=== PATIENT | male | born 1990 | race Caucasian/White ===

== ENCOUNTER 2016-06-22 16:15 | Observation (INO) | payer BC ==
[2016-06-22] MEDS ORDERED: KETOROLAC TROMETHAMINE INJ 30 MG/ML VIAL IV ONE (16:42)
[2016-06-22] MEDS ORDERED: HYDROcodone 10MG/APAP 325MG 1 EA TAB PO ONE (16:44)
[2016-06-22] MEDS ORDERED: CLINDAMYCIN IV 900MG 900 MG in PREMIX BAG 1 BAG IVPB ONE (16:44)
--- NOTE | 2016-06-22 16:48 | ED.PDOC ---
History of Present Illness - General Chief Complaint: Skin/Abrasion/Tear Stated Complaint: boil draining on neck x several days Time Seen by Provider: 06/22/16 16:41 Source: patient Exam Limitations: no limitations - History of Present Illness Initial Comments: 26 YO MALE REPORTS PROGRESSIVELY WORSENING AREA OF ERYTHEMA, PAIN AND SWELLING LOCATED IN THE RIGHT SUBMANDIBULAR REGION. PT REPORTS THAT MASS STARTED A PIMPLE AND PROGRESSIVELY BECAME LARGER AND MORE PAINFUL. PT REPORTS THAT THE MASS BEGAN TO DRAIN PURULENT MATERIAL OVER THE PAST 2 DAYS. PT REPORTS MILD DIFFICULTY SWALLOWING OF TODAY. Timing/Duration: getting worse Severity: moderate Location: face Improving Factors: nothing Worsening Factors: nothing Allergies/Adverse Reactions: Allergies NO KNOWN ALLERGY Allergy (Verified 06/22/16 16:34) Home Medications: Ambulatory Orders Lansoprazole [Prevacid] 06/22/16 Review of Systems - Review of Systems Constitutional: Denies: chills, fever EENTM: Denies: throat pain, mouth pain Respiratory: Denies: short of breath, stridor Cardiology: Denies: chest pain, palpitations Gastrointestinal/Abdominal: Denies: nausea, vomiting Genitourinary: Denies: frequency, pain Musculoskeletal: Denies: joint pain, muscle pain Skin: States: see HPI, change in color, lesions, lumps Neurological: Denies: numbness, paresthesia Endocrine: Denies: increased hunger, increased thirst Hematologic/Lymphatic: Denies: anemia, easy bleeding Past Medical History (General) - Patient Medical History Hx Seizures: No Hx Stroke: No Hx Dementia: No Hx Asthma: No Hx of COPD: No Hx Cardiac Disorders: No Hx Congestive Heart Failure: No Hx Pacemaker: No Hx Hypertension: No Hx Thyroid Disease: No Hx Diabetes: No Hx Gastroesophageal Reflux: Yes Hx Renal Disease: No Hx Cancer: No Hx of HIV: No Hx Hepatitis C: No Hx MRSA: No Surgical History: tonsillectomy - Vaccination History Hx Tetanus, Diphtheria Vaccination: Yes Hx Influenza Vaccination: No Hx Pneumococcal Vaccination: No Immunizations Up to Date: No - Social History Hx Tobacco Use: No Hx Chewing Tobacco Use: No Hx Alcohol Use: Yes Hx Substance Use: No Hx Substance Use Treatment: No Hx Depression: No Feels Threatened In Home Enviroment: No Feels Threatened In a Relationship: No Hx Physical Abuse: No Hx Emotional Abuse: No Hx Suspected Abuse: No Family Medical History - Family History Mother Family History: Unknown Living Status: Still Living Physical Exam - Physical Exam General Appearance: Alert, Obvious distress, Well Developed, Well Groomed, Well Hydrated Eyes, Ears, Nose, Throat Exam: normal ENT inspection, pharynx normal Neck: other - 5CM DIAMETER AREA OF SWELLING, ERYTHEMA, AND INDURATION WITH ULCERATED CENTER, UNABLE TO EXPRESS ANY PURULENT MATERIAL, NO FLUCTUANCE Cardiovascular/Chest: regular rate, rhythm, no murmur Respiratory: normal breath sounds, no respiratory distress Skin Exam: warm/dry, normal color Skin Problem Location: neck Skin Character: abscess, tenderness Progress - Progress Progress: 06/22/16 18:06 PT REPORTS SOME IMPROVEMENT OF SYMPTOMS ON RE-EXAM. LABS AND CT FINDINGS DISCUSSED. PT AGREES WITH PLAN TO ADMIT FOR IV ABX. - Results/Orders Results/Orders: 06/22/16 16:42 IV Care:Saline Lock per Protoc QSHIFT Sodium Chloride 0.9% (Flush) [Saline Flush Syringe] 10 ml IV PRN PRN 06/22/16 16:43 Hold Metformin x 48Hrs [id number] 06/22/16 17:45 WOUND CULTURE Stat Laboratory Results - last 24 hr 06/22/16 06/22/16 16:55 16:55 WBC 10.1 RBC 4.81 Hgb 14.7 Hct 42.0 MCV 87.4 MCH 30.5 MCHC 34.9 RDW 13.1 Plt Count 285 MPV 8.6 Absolute Neuts (auto) 5.60 Absolute Lymphs (auto) 3.30 Absolute Monos (auto) 0.80 Absolute Eos (auto) 0.30 Absolute Basos (auto) 0.10 Neutrophils % 55.4 Lymphocytes % 32.2 Monocytes % 8.4 Eosinophils % 3.0 Basophils % 1.0 Sodium 137 Potassium 3.7 Chloride 101 Carbon Dioxide 28 Anion Gap 11.7 L BUN 11 Creatinine 0.77 BUN/Creatinine Ratio 14.3 Random Glucose 81 Serum Osmolality 272.2 L Calcium 9.3 - EKG/XRAY/CT CT: CT SOFT TISSUE NECK SHOWS NO DRAINABLE FLUID COLLECTION, (+)CELLULITIS Departure - Departure Clinical Impression: Abscess Cellulitis Qualifiers: Site of cellulitis: neck Qualified Code(s): L03.221 - Cellulitis of neck Time of Disposition: 18:08 Disposition: Admit Patient Condition: Fair Departure Forms: ED Discharge - Pt. Copy, Patient Portal Self Enrollment Home Medications: Ambulatory Orders Lansoprazole [Prevacid] 06/22/16 Decision To Admit - Decistion To Admit Decision to Admit Reason: Admit from ER Decision to Admit Date: 06/22/16 - CASE DISCUSSED WITH DR. PAL WHO AGREES TO ADMIT PT. Decision to Admit Time: 18:08
[2016-06-22] MEDS ORDERED: CLINDAMYCIN IV 900MG 50 ML IVPB ONE (16:50)
[2016-06-22] MEDS: SODIUM CHLORIDE 0.9% (FLUSH) 10 ML SYG IV PRN (16:51)
--- NOTE | 2016-06-22 17:37 | CT ---
EXAM DESCRIPTION: CT CERVICAL SPINE CLINICAL HISTORY: right submandibular swelling COMPARISON: None Available. TECHNIQUE: Contiguous axial images of the neck were obtained after administration of intravenous contrast followed by reconstruction images. This exam was performed according to our departmental dose-optimization program, which includes automated exposure control, adjustment of the mA and/or kV according to patient size and/or use of iterative reconstruction technique. FINDINGS: There is focal skin thickening at the right lateral inferior neck which corresponds with the area of palpable abnormality marked with a BB marker. There is mild stranding of the adjacent fat which could be secondary to edema versus cellulitis. There is no discrete focal fluid collection to suggest a drainable abscess. Prevertebral soft tissues are within normal limits. Airway is patent. There is no lymphadenopathy. The thyroid gland and parotid gland are symmetric bilaterally. Lobular opacities within the maxillary sinuses compatible with chronic sinusitis changes/mucoid retention cyst. The submandibular glands are within normal limits. IMPRESSION: Focal skin thickening at the right lateral inferior neck with mild stranding of the adjacent fat could be secondary to focal cellulitis/infectious process. There is no discrete focal fluid collection to suggest a drainable abscess. Electronically signed by: Darrell Hussein MD 06/22/2016 5:37 PM CDT
--- NOTE | 2016-06-22 19:17 | HP ---
HISTORY OF PRESENT ILLNESS: This 26 year-old white male is placed in the hospital from the Emergency Room because of a severe infection on his right anterior neck. No previous history of similar symptoms in the past. He was recently this past weekend and [facility] [place] [facility] In the process about 5 days ago a small pimple appeared on his anterior right mid neck. About 2 days later he used a clean squeezer to help open up the enlarging sore spot with associated induration to remove the white and yellowish cap of pus underneath the skin at its peak. Subsequent to that, the lesion has worsened with increasing induration as well as drainage and erythema , pain and discomfort. He was seen in the Emergency Room today for the first time and noted to have an elevated white count of 10,800. CT scan of the neck was provided to make sure his airway was well maintained because of shortness of breath and some difficulty swallowing at times. No evidence of involvement of the airway or his esophagus was evident, but there was skin thickening with no definite abscess cavity otherwise evident. The draining did continue though for the last 2 days. The Emergency Room physician wished us to observe the patient with continued antibiotic parenterally administered overnight and reevaluation in the morning. PAST SURGICAL HISTORY: None. CURRENT MEDICATIONS: 1. Prilosec. 2. Aleve. ALLERGIES: NONE. HE DOES HAVE SOME SENSITIVITY TO LACTOSE PRODUCTS. FAMILY HISTORY: Hypertension and coronary artery disease. 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 REVIEW OF SYSTEMS: Review of systems have generally been within normal limits except as it relates to this enlarging boil on his right anterior neck region. PHYSICAL EXAMINATION: VITAL SIGNS: Afebrile, pulse 74, blood pressure 114/76, room air saturation 99 % on room air. Weight 113.4 kilos. GENERAL: The patient is awake, alert and oriented, in no acute distress but having discomfort. There is drainage from the area of his right neck from multiple carbuncle sources. NECK: The neck exam also reveals an area of induration approximately the size of a silver dollar underneath the area of the carbuncle on his right anterior neck. No red streaking is evident at this time, but there is drainage noted, pus-like, creamy material. CHEST: Lungs are clear. CARDIOVASCULAR: Heart tones regular. ABDOMEN: Soft. EXTREMITIES: Normal. NEUROLOGIC: Within normal limits. LABORATORY: White count of 10,100, hemoglobin 14.7. Chemistries show potassium 3.7, CO2 is 28, BUN and creatinine normal. Glucose 81, calcium 9.3. Wound culture is pending. Soft tissue neck CT reveals the localized focal skin thickening on the right lateral inferior neck with no discrete focal abscess formation noted. ASSESSMENT: 1. Acute infectious carbuncle probable Staphylococcus aureus, rule out Methicillin resistant Staphylococcus aureus and treat accordingly. The wound is draining but will require further incision to assist the draining after evaluation in the morning depending on his progress during the night. PLAN: The patient is placed in the hospital for overnight observation. IVs are started. He will be given Clindamycin 600 mg every 6 hours and started on Bactrim at this time. Given Align 4 mg b.i.d. Await cultures in the morning. Pain medicines with Draper or Toradol. Await MRSA nasal surveillance culture. Hibiclens diluted cleansing of the wound as well as baths for decolonization. Hot compresses to be applied. Followup with Dr. Yang in the morning if not improving. #[id number] [facility]
[2016-06-22] MEDS ORDERED: SODIUM CHLORIDE 0.9% (FLUSH) 10 ML SYG IV PRN (20:50)
[2016-06-22] MEDS ORDERED: MAGNESIUM HYDROXIDE 30 ML UD PO PRN (20:50)
[2016-06-22] MEDS ORDERED: ONDANSETRON INJ 4 MG/2 ML VIAL IV PRN (20:50)
[2016-06-22] MEDS ORDERED: HYDROcodone 5MG/APAP 325MG 1 EA TAB PO PRN (20:50)
[2016-06-22] MEDS ORDERED: CHLORHEXIDINE GLUCONATE 4 % 15 ML UD TOP ONE (20:54)
[2016-06-22] MEDS ORDERED: IV SET AND CAP CHANGE INJ INJ SCH (21:00)
[2016-06-22] MEDS: SULFA/TRIMETH 800/160 (DS) TAB 1 EA TAB PO SCH (21:45)
[2016-06-22] MEDS: BIFIDOBACTERIUM INFANTIS 4 MG CAP PO SCH (21:45)
[2016-06-22] MEDS: SODIUM CHLORIDE 0.9% (FLUSH) 10 ML SYG IV SCH (21:46)
[2016-06-22] MEDS ORDERED: CLINDAMYCIN IV 600MG 50 ML IVPB ONE (22:42)
[2016-06-22] MEDS: CLINDAMYCIN IV 600MG 600 MG in PREMIX BAG 1 BAG IVPB SCH (22:43)
[2016-06-23] MEDS ORDERED: CLINDAMYCIN IV 600MG 50 ML IVPB ONE ×4 (04:22→22:58)
[2016-06-23] MEDS: SODIUM CHLORIDE 0.9% (FLUSH) 10 ML SYG IV PRN (04:29)
[2016-06-23] MEDS: CLINDAMYCIN IV 600MG 600 MG in PREMIX BAG 1 BAG IVPB SCH ×4 (04:29→23:14)
[2016-06-23] MEDS: HYDROcodone 7.5MG/APAP 325MG 1 EA TAB PO PRN ×3 (04:49→16:47)
[2016-06-23] MEDS: OMEPRAZOLE CAP 20 MG CAP PO SCH (06:06)
[2016-06-23] MEDS ORDERED: SULFAMET/TRIMETHOPRIM 400/80 1 TAB PO ONE (07:30)
[2016-06-23] MEDS: BIFIDOBACTERIUM INFANTIS 4 MG CAP PO SCH ×2 (09:01→20:54)
[2016-06-23] MEDS: SULFA/TRIMETH 800/160 (DS) TAB 1 EA TAB PO SCH ×2 (09:04→20:54)
[2016-06-23] MEDS: NAPROXEN SODIUM 220 MG TAB PO SCH (09:04)
[2016-06-23] MEDS: CHLORHEXIDINE GLUCONATE 4 % 15 ML UD TOP SCH ×3 (09:05→21:30)
[2016-06-23] MEDS: SODIUM CHLORIDE 0.9% (FLUSH) 10 ML SYG IV SCH ×2 (09:40→20:54)
[2016-06-23] MEDS ORDERED: LIDOCAINE 1% 10 ML VIAL INJ ONE (10:28)
[2016-06-23] MEDS ORDERED: POVIDONE IODINE 10 % 15 ML UD TOP ONE (10:29)
--- NOTE | 2016-06-23 13:23 | PN ---
DATE: 06/23/16 SUBJECTIVE: Seems to be a little better today, though still with fairly significant drainage, but much less of an open drainage port today compared to yesterday during the day. Still awaiting culture results. Appetite is good. OBJECTIVE: VITAL SIGNS: Afebrile. Blood pressure 134/78. Pulse oximetry 95% on room air. LABORATORY: White count is from 10,000 to 7,500 with 48% neutrophils. Chemistries are generally within normal limits. Preliminary wound culture reveals the need for additional incubation, which will be by tomorrow before we will know. MRSA surveillance culture pending. ASSESSMENT: 1. Acute infectious carbuncle, probable Staphylococcus aureus, rule out Methicillin resistant Staphylococcus aureus and treat accordingly. Seen by Dr. Yang in consultation who requests an additional day of IV therapy. PLAN: We will continue with direct shower application to the area to help keep the ports open and draining. Continue with Hibiclens cleaning at least twice daily. Dressings to be changed. Continue clindamycin IV as well as Bactrim b.i.d. and close followup and reevaluation in the morning. Dr. Yang will do an open draining if it is not opened and have continued draining and resolution with the shower applications and the continued cleansing. Close followup necessary. #[id number] [facility]
[2016-06-23] MEDS: KETOROLAC TROMETHAMINE INJ 60 MG/2 ML VIAL IM PRN ×2 (13:33→21:46)
--- NOTE | 2016-06-23 13:35 | CONS ---
DATE OF CONSULTATION: 06/23/16 HISTORY OF PRESENT ILLNESS: The patient was admitted yesterday through the Emergency Room for a tender mass on his right anterior neck with no previous history. The patient states it started as a small pimple which has gotten much worse, associated with his wedding this past weekend. He has had significant drainage and increasing pain, but no significant fever. The patient did have a CT scan in the Emergency Room which revealed no specific fluid-filled abscess cavity. PAST MEDICAL HISTORY: Insignificant. CURRENT MEDICATIONS: 1. Prilosec. 2. Aleve. ALLERGIES: SENSITIVE TO LACTOSE. FAMILY HISTORY: Positive for heart disease and hypertension. 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 He does not use tobacco products. He is recently and lives in [place]. REVIEW OF SYSTEMS: He specifically denies previous injury to this area of his neck, previous tenderness, swelling. PHYSICAL EXAMINATION: GENERAL: The patient is awake, alert, cooperative, in no significant distress. VITAL SIGNS: The patient is currently afebrile, pulse 60s, blood pressure 194/ 78, respiratory rate 16. HEENT: Sclerae nonicteric. Mucous membranes moist. NECK: On the lower neck on the right, there is approximately 2 by 3 cm area of induration with some overlying ulceration, consistent with an eschar. There is no fluctuance. It is mildly tender. There is mild surrounding, overlying erythema. CHEST: No lesions. ABDOMEN: Benign. LABORATORY: Today, white count is down from 10.1 yesterday to 7.5. Hemoglobin is down from 14.7 to 14.3. Platelet count from 285 to 241. Segs are down from 55 to 48. ASSESSMENT: 1. Cellulitis with possible abscess versus furuncle, right anterior neck, status post spontaneous drainage, currently improving on clindamycin. PLAN: Await the final culture results while continuing IV clindamycin and the routine local care instructions that have already been begun. Hopefully, the culture results will be back tomorrow and he can be discharged on oral antibiotic of appropriate coverage. #[id number] [facility]
[2016-06-24] MEDS: HYDROcodone 7.5MG/APAP 325MG 1 EA TAB PO PRN ×3 (02:30→13:38)
[2016-06-24] MEDS ORDERED: CLINDAMYCIN IV 600MG 0 ML IVPB ONE (05:01)
[2016-06-24] MEDS: CLINDAMYCIN IV 600MG 600 MG in PREMIX BAG 1 BAG IVPB SCH ×2 (05:08→10:39)
[2016-06-24] MEDS: OMEPRAZOLE CAP 20 MG CAP PO SCH (06:13)
[2016-06-24] MEDS ORDERED: CLINDAMYCIN IV 600MG 50 ML IVPB ONE ×3 (07:23→10:56)
[2016-06-24] MEDS: BIFIDOBACTERIUM INFANTIS 4 MG CAP PO SCH (08:57)
[2016-06-24] MEDS: NAPROXEN SODIUM 220 MG TAB PO SCH (08:57)
[2016-06-24] MEDS: SULFA/TRIMETH 800/160 (DS) TAB 1 EA TAB PO SCH (08:57)
[2016-06-24 10:24] VITALS: BP 146/84; TEMP 97.8; O2SAT 96
[2016-06-24] MEDS: SODIUM CHLORIDE 0.9% (FLUSH) 10 ML SYG IV SCH (10:39)
[2016-06-24] MEDS: CHLORHEXIDINE GLUCONATE 4 % 15 ML UD TOP SCH (10:51)
--- NOTE | 2016-06-24 15:03 | DS ---
SUPERVISING PHYSICIAN: Skyler Hazel MD DISCHARGE DIAGNOSIS: 1. Acute infectious carbuncle, most likely Staphylococcus aureus and rule out methicillin resistant Staphylococcus aureus, still pending cultures. HISTORY OF PRESENT ILLNESS: This is a 26-year-old male that was seen in the Emergency Room because of a severe infection of his right anterior neck. He has no previous history of any MRSA in the past. He had just gotten the weekend prior to his admission to the hospital. He stated that about 5 days ago a small pimple appeared on his anterior right mid neck. He attempted to open it up and there was yellowish-white pus underneath the skin. It continued to worsen as well as the pain, so he came to the Emergency Room. In the Emergency Room, his white count was 10,800. CT scan of the neck was provided to make sure the airway was maintained and it showed no evidence of involvement of the airway or his esophagus evident, but there was skin thickening with no definite abscess cavity otherwise evident. He was initially started on parenteral antibiotics and was placed in observation in the hospital. HOSPITAL COURSE: The patient was given clindamycin as well as Bactrim. He also was given probiotics. Dr. Yang was consulted. Prior to antibiotic therapy, cultures were done. He continued to improve over the next 2 days and warm compresses were applied to the area. Dr. Yang recommended that he would do an open draining if it did not open up or continue to drain, but the wound continued to drain during his hospital stay and at this point I believe he is ready to be discharged home. DISCHARGE PLAN: The patient will be discharged home in stable condition. He is to resume his previous activity as well as his previous diet. His sensitivities from his cultures are not completed yet. He will be sent home on oral Bactrim and clindamycin. I will contact him tomorrow at [phone] if his antibiotic coverage needs to be changed. He is to see his primary care physician in [place] in 1 to 2 weeks. He is to continue with warm compresses as needed and to return to the Emergency Room or see his primary care physician for any further complications or problems. I have also discharged him on some Tylenol No. 3 for pain and I have also recommended that he use ibuprofen or Aleve for an anti-inflammatory. DISCHARGE MEDICATIONS: 1. Omeprazole. 2. Naprosyn. 3. Acetaminophen with codeine. 4. Align. 5. Clindamycin. 6. Bactrim DS. Dr. Hazel is the collaborating physician and available for consultation. #[id number] #[id number] ADDENDUM: 06/25/2016 15:50 Patient called and informed of C and S report and to let him know he is on appropriate antibiotics. [facility]
== END 2016-06-24 15:05 | disposition home or self-care (01) ==
LOC: ER 16:15 → INTOOBSV 19:17 → MS 19:17
PROVIDERS: ADMIT Emergency Medicine; ATTEND Nurse Practitioner Acute Care
DX: L02.13 Carbuncle of neck (principal); L03.221 Cellulitis of neck; B95.62 Methicillin resistant Staphylococcus aureus infection as the cause of diseases classified elsewhere; K21.9 Gastro-esophageal reflux disease without esophagitis; Z79.899 Other long term (current) drug therapy; Z91.018 Allergy to other foods; Z82.49 Family history of ischemic heart disease and other diseases of the circulatory system